=== PATIENT | female | born 1980 | race Caucasian/White ===

== ENCOUNTER 2022-11-03 16:10 | Emergency (ER) | payer SELFPAY ==
[2022-11-03 16:16] VITALS: BP 149/91; PULSE 92; RESP 18; TEMP 36.7; O2SAT 96
--- NOTE | 2022-11-03 17:31 | ED_ITS ---
HPI - Female Genitourinary General: Chief complaint: Urogenital-Female Stated complaint: unable to urinated in 3 days Time Seen by Provider: 11/03/22 17:30 History of Present Illness: 42-year-old female comes in today with complaints of right flank pain and frequent urination starting yesterday. Patient reports about 2 weeks ago she had some right flank pain but seem to improve but has had some mild discomfort over the last 2 weeks. The last 24 to 40 hours patient's had a had an increase in pain and discomfort and urinary frequency. Patient believes she might have a kidney stone. Patient appears in mild to moderate pain. Patient reports no fever, significant vaginal discharge, possible chance being , and no chronic medical problems. Patient has had her gallbladder removed. Associated symptoms: Reports nausea Review of Systems General: Reports: 10 or more systems reviewed and unremarkable except in HPI and below Const: Denies: fever(s) Card: Denies: chest pain Resp: Denies: dyspnea GI: Reports: nausea; Denies: vomiting, diarrhea or constipation : Reports: flank pain, urinary frequency and urinary urgency Musc: Reports: back pain; Denies: neck pain Skin/Breast: Denies: rash Physical Exam Const: COMMON NORMALS: alert HENMT: COMMON NORMALS: normocephalic HEAD & SCALP: normocephalic MOUTH: Normal oral and palatal mucosa present Neck/C-Spine: COMMON NORMALS: full ROM Resp: COMMON NORMALS: normal respiratory effort and clear to auscultation bilaterally AUSCULTATION: clear to auscultation bilaterally Cardio: COMMON NORMALS: regular rate RATE: regular rate GI: COMMON NORMALS: Soft to palpation PALPATION: Yes Soft to palpation and Yes Tenderness to palpation present (GI) Details: RUQ : BLADDER/KIDNEY EXAM: Yes CVA tenderness on the right Back/Pelvis: GENERAL BACK: Yes CVA tenderness Extremity: COMMON NORMALS: no pedal edema Neuro: SENSORIUM/ORIENTATION: Yes alert Skin: COMMON NORMALS: turgor normal GENERAL SKIN EXAM: turgor normal Course Vital Signs: Vital signs: Vital Signs Temperature 98.0 F 11/03/22 16:16 Pulse Rate 78 11/03/22 18:24 Respiratory Rate 16 11/03/22 18:24 Blood Pressure 120/88 11/03/22 18:24 Pulse Oximetry 98 11/03/22 18:24 Oxygen Delivery Me thod Room Air 11/03/22 18:24 MDM - Female Medical Decision Making 42-year-old female comes in today with complaints of right flank pain and increasing urinary frequency and urgency. Patient denies fever. On exam patient is got some right upper quadrant abdominal tenderness and right CVA tenderness. Bowel sounds are present. Vital signs are normal. Differential diagnosis includes but not limited to pyelonephritis, renal calculi, pancreatitis. CBC and CMP were unremarkable. Urinalysis had some blood and leukocyte Estrace in it. CT of the abdomen pelvis noted urinary bladder wall thickening and fluid in the small bowel. Believe patient probably has a urinary tract infection and will start on cefdinir 300 mg twice a day for 7 days. Patient was given some Pyridium for 2 days for discomfort. Courage plenty of fluids and follow-up with primary care in 1 week. Return to ED for new concerns. Lab Data 11/03/22 17:28 11/03/22 17:28 Radiology Impressions Abdomen/Pelvis CT 11/03/22 18:00 IMPRESSION: 1. Urinary bladder wall thickening may reflect a cystitis versus nondistention, please correlate clinically. 2. Prominent fluid in the small bowel without dilation suggestive of an enteritis, in the appropriate clinical setting. 3. Cholecystectomy. 4. Bilateral tubal ligation clips. 5. Chronic bilateral L5 pars interarticularis defects. Laboratory Results WBC 11.9 10^3/uL (4.0-10.0) H 11/03/22 17:28 RBC 4.56 10^6/uL (4.1-5.3) 11/03/22 17: Hgb 13.8 g/dL (11.5-15.3) 11/03/22 17: Hct 41.3 % (37.0-47.0) 11/03/22 17: MCV 90.6 fl (81-99) 11/03/22 17: MCH 30.3 pg (28.0-34.0) 11/03/22 17: MCHC 33.4 g/dL (30.0-36.0) 11/03/22 17: RDW 13.6 % (12.1-15.1) 11/03/22 17: Plt Count 274 10^3/cmm (130-400) 11/03/22 17:28 MPV 10.5 fL (7.4-10.4) H 11/03/22 17: Neut % (Auto) 63.2 % 11/03/22 17: Lymph % (Auto) 29.4 % 11/03/22 17: [place] % (Auto) 5.1 % 11/03/22 17: Eos % (Auto) 1.7 % 11/03/22 17: Baso % (Auto) 0.3 % 11/03/22: Neut # (Auto) 7.50 10^3/uL (1.8-7.7) 11/03/22: Lymph # (Auto) 3.5 10^3/uL (0.8-4.8) 11/03/22: [place] # (Auto) 0.6 10^3/uL (0.2-0.9) 11/03/22: Eos # (Auto) 0.2 10^3/uL (0.0-0.8) 11/03/22: Baso # (Auto) 0.0 10^3/uL (0.0-0.1) 11/03/22: Nucleated RBC % (auto) 0 % 11/03/22: Nucleated RBCs # 0.0 /100WBC 11/03/22: Sodium 139 mmol/L (136-145) 11/03/22: Potassium 4.0 mmol/L (3.5-5.1) 11/03/22: Chloride 102 mmol/L (98-107) 11/03/22: Carbon Dioxide 28 mmol/L (22-29) 11/03/22 17: Anion Gap 13.0 (5-19) 11/03/22 17: BUN 8 mg/dL (6-20) 11/03/22: Creatinine 0.6 mg/dL (0.5-0.9) 11/03/22: GFR Calculation 109.1 mL/min (90-130) 11/03/22 17:28 Glucose 90 mg/dL (65-115) 11/03/22: Calculated Osmolality 286 mOsm/kg (285-295) 11/03/22: Calcium 8.8 mg/dL (8.5-10.5) 11/03/22 17:28 Total Bilirubin 0.2 mg/dL (0.15-1.2) 11/03/22 17: AST 14 U/L (0-32) 11/03/22 17: ALT 15 U/L (0-33) 11/03/22 17:28 Alkaline Phosphatase 90 U/L (35-105) 11/03/22 17:28 Total Protein 7.3 g/dL (6.6-8.7) 11/03/22 17: Albumin 4.4 g/dL (3.5-5.2) 11/03/22 17: Globulin 2.9 g/dL (1.3-4.6) 11/03/22 17:28 HCG, Qual Negative (Negative) 11/03/22 16:25 Urine Color Yellow (Yellow) 11/03/22 16:25 Urine Appearance Cloudy (CLEAR) A 11/03/22 16:25 Urine pH 6.5 (5-7) 11/03/22 16:25 Ur Specific [place] 1.015 (1.005-1.030) 11/03/22 16:25 Urine Protein Trace (Negative) 11/03/22 16:25 Urine Glucose (UA) Norm (Normal) 11/03/22 16:25 Urine Ketones Negative (Negative) 11/03/22 16:25 Urine Blood 2+ (Negative) H 11/03/22 16:25 Urine Nitrate Negative (Negative) 11/03/22 16:25 Urine Bilirubin Neg (Negative) 11/03/22 16:25 Urine Urobilinogen Norm mg/dL (Negative) 11/03/22 16:25 Ur Leukocyte Esterase 1+ (Negative) H 11/03/22 16:25 Urine RBC 5-10 /hpf (0-2) H 11/03/22 16:25 Urine WBC 10-15 /hpf (0-5) H 11/03/22 16:25 Ur Squamous Epith Cells 0-4 /hpf (0-5) H 11/03/22 16:25 Amorphous Sediment Not Reportable 11/03/22 16:25 Urine Bacteria None /hpf (NONE) 11/03/22 16:25 Discharge Plan Discharge Patient Disposition: Home Clinical Impression: Urinary tract infection Qualifiers: Urinary tract infection type: acute cystitis Hematuria presence: with hematuria Qualified Code(s): N30.01 - Acute cystitis with hematuria Condition: Stable Prescriptions: New Pyridium 200 mg tablet 200 mg PO Q8H Qty: 6 0RF cefdinir 300 mg capsule 300 mg PO BID 7 Days Qty: 13 0RF Discharge Orders: Discharge ED (Routine); Ordered 11/03/22 Ordered By: Naren Fuller Discharge Diet: Usual diet Discharge Activity: Increase activity as tolerated Patient Instructions: Urinary Tract Infection in Women (ED) Activity Restrictions/Additional Instructions: Drink plenty of water. Use antibiotics as directed for the next 7 days. Use Pyridium for discomfort. Follow-up with primary care in 1 week for recheck of urine. Return to ED for new concerns. Coding Level of Care Code ED Bar Back for Francisco Mondragon
[2022-11-03 17:43] LABS: Basophils % 0.3 %; Eosinophils # 0.2 10^3/uL (0.0-0.8); Eosinophils % 1.7 %; Hematocrit 41.3 % (37.0-47.0); Hemoglobin 13.8 g/dL (11.5-15.3); Lymphocytes # 3.5 10^3/uL (0.8-4.8); Lymphocytes % 29.4 %; Mean Corpuscular HGB Conc 33.4 g/dL (30.0-36.0); Mean Corpuscular Hemoglobin 30.3 pg (28.0-34.0); Mean Corpuscular Volume 90.6 fl (81-99); Mean Platelet Volume 10.5 fL (7.4-10.4); Monocytes # 0.6 10^3/uL (0.2-0.9); Monocytes % 5.1 %; Neutrophils % 63.2 %; Nucleated Red Blood Cells % 0 %; Platelet Count 274 10^3/cmm (130-400); Red Blood Count 4.56 10^6/uL (4.1-5.3); Red Cell Distribution Width 13.6 % (12.1-15.1); White Blood Count 11.9 10^3/uL (4.0-10.0)
[2022-11-03 17:53] LABS: Alanine Aminotransferase 15 U/L (0-33); Albumin Level 4.4 g/dL (3.5-5.2); Alkaline Phosphatase 90 U/L (35-105); Aspartate Amino Transferase 14 U/L (0-32); Blood Urea Nitrogen 8 mg/dL (6-20); Calcium 8.8 mg/dL (8.5-10.5); Carbon Dioxide 28 mmol/L (22-29); Chloride 102 mmol/L (98-107); Globulin 2.9 g/dL (1.3-4.6); Glomerular Filtration Rate 109.1 mL/min (90-130); Glucose 90 mg/dL (65-115); Osmolality Calculated 286 mOsm/kg (285-295); Sodium 139 mmol/L (136-145); Total Bilirubin 0.2 mg/dL (0.15-1.2); Total Protein 7.3 g/dL (6.6-8.7)
--- NOTE | 2022-11-03 18:00 | CTR_ITS ---
PROCEDURE INFORMATION: Exam: CT Abdomen And Pelvis Without Contrast Exam date and time: 11/03/2022 6:36 PM Age: 42 years old Clinical indication: Abdominal pain; Flank; Right; Prior surgery; Surgery date: 6+ months; Surgery type: Molly, tubal; Additional info: Right flank pain TECHNIQUE: Imaging protocol: Computed tomography of the abdomen and pelvis without contrast. Radiation optimization: All CT scans at this facility use at least one of these dose optimization techniques: automated exposure control; mA and/or kV adjustment per patient size (includes targeted exams where dose is matched to clinical indication); or iterative reconstruction. REPORTING DATA: Count of CT and Cardiac NM exams in prior 12 months: This patient has received 0 known CTs and 0 known cardiac nuclear medicine studies in the 12 months prior to the current study. COMPARISON: No relevant prior studies available. RADIATION DOSE METRICS: Total DLP (mGy-cm): 825 FINDINGS: Liver: Normal. No mass. Gallbladder and bile ducts: Cholecystectomy. Pancreas: Normal. No ductal dilation. Spleen: Normal. No splenomegaly. Adrenal glands: Normal. No mass. Kidneys and ureters: Normal. No hydronephrosis. Stomach and bowel: Prominent fluid in the small bowel without dilation suggestive of an enteritis, in the appropriate clinical setting. Appendix: No evidence of appendicitis. Intraperitoneal space: Unremarkable. No free air. No significant fluid collection. Vasculature: Unremarkable. No abdominal aortic aneurysm. Lymph nodes: Unremarkable. No enlarged lymph nodes. Urinary bladder: Urinary bladder wall thickening may reflect a cystitis versus nondistention, please correlate clinically. Reproductive: Bilateral tubal ligation clips. Bones/joints: Chronic bilateral L5 pars interarticularis defects. Soft tissues: Unremarkable. CT/CT kidney stone [id number] IMPRESSION: 1. Urinary bladder wall thickening may reflect a cystitis versus nondistention, please correlate clinically. 2. Prominent fluid in the small bowel without dilation suggestive of an enteritis, in the appropriate clinical setting. 3. Cholecystectomy. 4. Bilateral tubal ligation clips. 5. Chronic bilateral L5 pars interarticularis defects.
[2022-11-03 18:06] LABS: HCG Qualitative Urine. Negative (Negative)
[2022-11-03] MEDS: ketorolac 30 mg/mL INJ IM (18:18)
[2022-11-03] MEDS: HYDROcodone-acetaminophen 10-325 mg Tablet 1 TAB PO (18:18)
[2022-11-03] MEDS: ondansetron 4 MG Tablet PO (18:18)
[2022-11-03 18:19] LABS: Bilirubin Urine Neg (Negative); Blood Urine 2+ (Negative); Glucose Urine UA Norm (Normal); Ketones Urine Negative (Negative); Nitrate Urine Negative (Negative); Protein Urine Trace (Negative); Specific Gravity, Urine 1.015 (1.005-1.030); Urine Appearance Cloudy (CLEAR); Urine Color Yellow (Yellow); pH Urine 6.5 (5-7)
[2022-11-03 18:20] LABS: Add Urine Microscopic? YES; Leukocyte Esterase Urine 1+ (Negative); Urobilinogen Urine Norm (Negative)
[2022-11-03 18:21] LABS: Squamous Epithelial Cell Urine 0-4 /hpf (0-5)
[2022-11-03 18:22] LABS: Add Urine Culture? No
[2022-11-03 18:24] VITALS: BP 120/88; PULSE 78; RESP 16; O2SAT 98
[2022-11-03] MEDS: cefdinir 300 MG CAPSULE PO (19:24)
--- NOTE | 2022-11-07 11:47 | DCPLANNER ---
Patient was called due to no primary care physician - no answer at this time, a message was left for patient to return call.
== END 2022-11-03 19:26 | disposition home or self-care (01) ==
PROVIDERS: Emergency Provider Nurse Practitioner Family
DX: N30.01 Acute cystitis with hematuria (principal)
CPT/HCPCS: 36415; 74176; 80053; 81001; 81025; 85025; 96372; 99284; J1885; Q0162

== ENCOUNTER 2024-11-16 10:03 | Outpatient (CLI) | payer MEDICAID, SELFPAY ==
--- NOTE | 2024-11-16 10:08 | CTR_ITS ---
PROCEDURE INFORMATION: Exam: CT Abdomen With Contrast Exam date and time: 11/16/2024 10:46 AM Age: 44 years old Clinical indication: Prior surgery; Surgery date: 6+ months; Surgery type: Tubal, gb; Bloating and upper abdominal pain x 3 years, inconclusive US of abdomen; Additional info: Generalized abd pain/inconclusive US of abdomen TECHNIQUE: Imaging protocol: Computed tomography of the abdomen with contrast. Axial, coronal and sagittal reformatted images were created and reviewed. Radiation optimization: All CT scans at this facility use at least one of these dose optimization techniques: automated exposure control; mA and/or kV adjustment per patient size (includes targeted exams where dose is matched to clinical indication); or iterative reconstruction. Contrast material: OMNI 350; Contrast volume: 100 ml; Contrast route: INTRAVENOUS (IV); COMPARISON: CT kidney stone [id number] 11/03/2022 6:36 PM RADIATION DOSE METRICS: Total DLP (mGy-cm): 439.87 FINDINGS: Lungs: Linear stranding and groundglass at the lung bases, likely due to atelectasis and/or scarring. Left lower lobe calcified granuloma. Liver: Mild hepatomegaly. Gallbladder and biliary ducts: Status post cholecystectomy. No biliary ductal dilatation. Pancreas: Normal. No ductal dilation. Spleen: Normal. No splenomegaly. Adrenal glands: Normal. No mass. Kidneys: Normal. No hydronephrosis. Stomach and bowel: Moderate amount of retained stool in the visualized colon. No obstruction. No bowel wall thickening. No pneumatosis. Intraperitoneal space: Unremarkable. No free air. No significant fluid collection. Vasculature: Mild atherosclerotic disease. No aneurysm or dissection. Lymph nodes: Unremarkable. No enlarged lymph nodes. Bones/joints: No acute osseous abnormality. Degenerative changes. Soft tissues: Unremarkable. CT/CT abdomen pelvis w con* [id number] IMPRESSION: 1. Mild hepatomegaly. 2. Additional findings, as above.
[2024-11-16] MEDS: iohexol 350 mg/mL 500 mL Btl (per mL) IV (10:55)
== END 2024-11-16 10:04 | disposition home or self-care (01) ==
LOC: RAD 10:04
PROVIDERS: PCP Nurse Practitioner; Visit Provider Nurse Practitioner
DX: R10.84 Generalized abdominal pain (principal); R14.0 Abdominal distension (gaseous); R16.0 Hepatomegaly, not elsewhere classified
CPT/HCPCS: 74177

== ENCOUNTER → 2025-01-29 09:21 | Outpatient (BNVA) | payer MEDICAID, SELFPAY | PROVIDERS: PCP Nurse Practitioner; Visit Provider Orthopaedic Surgery | DX: M25.512 Pain in left shoulder (principal) | CPT/HCPCS: 73030 ==